=== PATIENT | male | born 1975 | race Two or more races ===

== ENCOUNTER 2020-10-26 21:56 | Inpatient (IN) | payer OTHER ==
[~2020-10-26] VITALS: Ht 165.1 cm
[~2020-10-26 21:56] MED LIST: ADVAIR HFA 115/12 GM IH; AMBIEN5 MG PO; CELEXA10 MG PO; CLARINEX5 MG/TAB PO; ENALAPRIL MALEA20 MG PO; KLONOPIN0.5 MG/TAB PO; NEURONTIN800 MG PO; SINGULAIR10 MG PO
[2020-10-26] MEDS ORDERED: SINGULAIR10 MG (22:08)
[2020-10-26] MEDS ORDERED: METFORMIN HCL1000 M2 (22:08)
[2020-10-26] MEDS ORDERED: LOSARTAN-HCTZ1 EAC1 (22:08)
[2020-10-26] MEDS ORDERED: LIPITOR80 MG (22:08)
[2020-10-26] MEDS ORDERED: ZEGERID 40 MG1 EACH (22:09)
--- NOTE | 2020-10-26 22:15 | NUR ---
PACIENTE REFIERE TENER ABCESO EN AREA INTRAGLUTEAL, EL CUAL LE [place] MUCHO DOLOR. SE OBSERVA ABCESO EN EL AREA DEL ANO, DE COLOR MARIIA. SE LIZABETH SIGNOS VITALES Y SE UBICA PTE EN PASILLO.
--- NOTE | 2020-10-26 23:21 | NUR ---
SE ORIENTA A PACIENTE SOBRE TRATAMIENTO. SE LIZABETH MUESTRAS DE LABORATORIO ORDENADAS. SE CANALIZA CON AREA DE VENOPUNCION NORMAN DE EDEMA O ENROJECIMIENTO Y SE ADMINISTRA MEDICAMENTO PARA EL DOLOR. SE UBICA EN CAROL CON BARANDAS SEGURAS Y ELEVADAS.
--- NOTE | 2020-10-27 07:11 | NUR ---
PACIENTE ALERTA Y ORIENTADO EN KAMRYN BARBARA ESFERAS, PRESENTA BUEN PATRON RESPIRATORIO Y NORMAN DE DOLOR. CANALIZADO EN BRAZO RT PATENTE Y NORMAN DE S/S DE FLEBITIS E INFILTRACION, AL MOMENTO NO ESTA RECIBIENDO NINGUN IVF'S. PENDIENTE EVALUACION DE N MEGAN POR HEMORROIDE EXTERNA TROMBOSADA.
[2020-10-28] MEDS ORDERED: NEURONTIN300 MG PO (12:13)
[2020-10-28] MEDS ORDERED: COLACE100 MG PO (12:13)
[2020-10-28] MEDS ORDERED: POLY119PG PO (12:13)
[2020-10-28] MEDS ORDERED: PERCOCET 5-3251 EACH PO (12:13)
== END 2020-10-28 14:45 | disposition home or self-care (01) | DRG 349 ==
LOC: ER 21:56 → SURG 10-27 11:03
PROVIDERS: ADMIT Surgery; ATTEND Surgery
PROC: 3E0F7SF Introduction of Other Gas into Respiratory Tract, Via Natural or Artificial Opening (ICD-10-PCS; 2020-10-27)
PROC: 3E0T3BZ Introduction of Anesthetic Agent into Peripheral Nerves and Plexi, Percutaneous Approach (ICD-10-PCS; 2020-10-27)
PROC: 06BY3ZC Excision of Hemorrhoidal Plexus, Percutaneous Approach (ICD-10-PCS; principal; 2020-10-27 14:00)
DX: K64.5 Perianal venous thrombosis (principal); K64.4 Residual hemorrhoidal skin tags; E11.9 Type 2 diabetes mellitus without complications; I10 Essential (primary) hypertension; Z20.822 Contact with and (suspected) exposure to COVID-19